=== PATIENT | male | born 1980 | race Two or more races ===

== ENCOUNTER 2021-08-30 23:11 | Emergency (ER) | payer OTHER, MEDICAID ==
[~2021-08-30] VITALS: Ht 170.2 cm; Wt 70.4 kg
--- NOTE | 2021-08-31 03:06 | RAD ---
Single view chest dated 08/31/2021 3:02 AM: COMPARISON: None Clinical Indication: Cough and shortness of breath. Findings: Single upright portable exam of the chest was performed. Heart size within normal limits. Lungs are c lear. No consolidation or pleural effusion. No pneumothorax. IMPRESSION: No acute radiographic abnormality. Electronically signed by: Emmanuel Huff MD (08/31/2021 3:03 AM) KITA
--- NOTE | 2021-08-31 03:13 | PHYS DOC ---
Past Medical History Past Surgical History: No Surgical History Smoking Status: Never Smoker Alcohol Use: None General Adult EDM: Chief Complaint: SHORTNESS OF BREATH HPI: HPI: Patient is a 41 year old male without pertinent past medical who presents with cough, sore throat, nasal congestion. Prior to arrival he was walking up the stairs and felt his heart racing, and shortness of breath. This self resolved. He experienced no chest pain or lightheadedness during this episode. Patient states that just prior to the episode he had taken some TheraFlu that may have contributed to his symptoms. At the time of evaluation he complains only of the cough, mild sore throat, nasal congestion. He has had 2 parts of a COVID vaccination, but has not been boosted. Does not know of any sick contacts. Review of Systems: Review of Systems: Constitutional: Denies fever or chills. [] Eyes: Denies change in visual acuity. [] HENT: Reports nasal congestion and mild sore throat Respiratory: Reports cough Cardiovascular: Denies chest pain or edema. [] GI: Denies abdominal pain, nausea, vomiting, bloody stools or diarrhea. [] : Denies dysuria. [] Musculoskeletal: Denies back pain or joint pain. [] Integument: Denies rash. [] Neurologic: Denies headache, focal weakness or sensory changes. [] Psychiatric: Denies depression or anxiety. [] Heart Score: C/O Chest Pain: No Allergies: Allergies: Allergies Coded Allergies Type Severity Reaction Last Updated Verified No Known Drug Allergies 08/31/21 No Physical Exam: PE: Constitutional: Well developed, well nourished, no acute distress, non-toxic appearance. [] Neck: Normal range of motion, no tenderness, supple, no stridor. [] Cardiovascular:Heart rate regular rhythm, no murmur [] Lungs & Thorax: Bilateral breath sounds clear to auscultation [] Abdomen: Bowel sounds normal, soft, no tenderness, no masses, no pulsatile masses. [] Skin: Warm, dry, no erythema, no rash. [] Back: No tenderness, no CVA tenderness. [] Extremities: No tenderness, no cyanosis, no clubbing, ROM intact, no edema. [] Neurologic: Alert and oriented X 3, normal motor function, normal sensory function, no focal deficits noted. [] Psychologic: Affect normal, judgement normal, mood normal. [] Current Patient Data: Labs: Laboratory Tests Test 08/31/21 02:35 SARS-CoV-2 Antigen (Rapid) Positive (NEGATIVE) *A Vital Signs: Vital Signs Date Time Temp Pulse Resp B/P (MAP) Pulse Ox O2 Delivery O2 Flow Rate FiO2 08/31/21 02:00 97.9 89 18 124/71 (88) 97 Room Air 97.9 EKG: EKG: Sinus rhythm. Rate 74. Normal axis. Normal intervals. No ischemic changes. Impression: Normal EKG [] Radiology/Procedures: Radiology/Procedures: [] Impression: [facility] [address] [place], [place] [id number] IMAGING REPORT Signed PATIENT: FRANCESCA JULIEN ACCOUNT: [id number] : 1980 LOCATION: ER AGE: 41 SEX: M EXAM STATUS: REG ER ORD. PHYSICIAN: ANDREW PENG MD REASON: COUGH, CONGESTION, SOB PROCEDURE: CHEST AP ONLY Single view chest dated 08/31/2021 3:02 AM: COMPARISON: None Clinical Indication: Cough and shortness of breath. Findings: Single upright portable exam of the chest was performed. Heart size within normal limits. Lungs are clear. No consolidation or pleural effusion. No pneumothorax. IMPRESSION: No acute radiographic abnormality. Electronically signed by: Emmanuel Huff MD (08/31/2021 3:03 AM) [facility] [place] DICTATED and SIGNED BY: EMMANUEL HUFF MD DATE: 08/31/21 [id number] 0 Course & Med Decision Making: Course & Med Decision Making Pertinent Labs and Imaging studies reviewed. (See chart for details) Patient 41-year-old male with 2-day history of cough, congestion, mild sore throat presented with a brief/self-limited episode of palpitations and mild s hortness of breath. On arrival he is afebrile, with normal heart rate, blood pressure, and is satting 97+ percent on room air. He has a normal work of breathing and normal auscultatory exam. PERC negative. Does not require evaluation for PE. Chest x-ray clear. EKG normal without evidence of arrhythmia, blocks, or QTC prolongation. Rapid COVID is positive which aligns well with his symptom complex. Given his stable vital signs and normal work of breathing feel he is appropriate for discharge with outpatient follow-up. He was given expectant management as well as isolation and return precautions Benny Disclaimer: Benny Disclaimer: This electronic medical record was generated, in whole or in part, using a voice recognition dictation system. Departure Departure Impression: Primary Impression: COVID-19 Disposition: HOME / SELF CARE / HOMELESS Condition: STABLE Referrals: NO PCP (PCP) Additional Instructions: You have Covid. Isolation: -You will need to isolate for a minimum of 5 days from symptom onset. 09/04 would be the earliest that you could end your isolation. -At 5 days please take a rapid COVID test, if positive continue to isolate for a full 10 days duration -At the 10-day satinder (or 5-day satinder with a negative COVID test), you must also have at least 3 days of no fever/chills, and improving symptoms before you end your isolation. -If you are continuing to be symptomatic or having high fevers you need to continue your isolation until you meet the above requirements. Monitoring: -Please buy a home pulse oximeter. These can be purchased [id number] most pharmacies, or on [employer]. -Check your oxygen levels once a day. If they are persistently below 90% please return to the emergency department. -If you develop chest pain or worsening shortness of breath please return to the emergency department. For fever/body aches tylenol and ibuprofen are best used on a schedule. Please alternate between the two. -Tylenol 1000 mg every 6 hours (do not exceed 4000 mg in one day) -Ibuprofen 400-600 mg every 6 hours. Take with food. Do not take for more than 1 week. If you do not have a PCP, please call the number for the [facility] at [phone]. ANDREW PENG MD Aug 31, 2021 03:13
[2021-08-31 03:55] VITALS: BP 118/72
--- NOTE | 2021-08-31 09:02 | EKG ---
[facility] [address] [place] [address] Test Date: 2021-08-31 Test Time: 02:33:39 Pat Name: FRANCESCA JULIEN Department: Room: Gender: M Surgical [employer] Hand Frame: : 1980 Requested By: ANDREW PENG Order Number: [id number] Reading MD: Demario Gonzalez MD Measurements Intervals [place] Rate: 74 P: 49 ID: [id number] QRS: 38 QRSD: 90 T: 46 QT: 356 QTc: 400 Interpretive Statements SINUS RHYTHM Electronically Signed On 09-02-2021 8:49:05 [facility] by Demario Gonzalez MD
== END 2021-08-31 04:00 | disposition home or self-care (01) ==
LOC: ER 23:11
DX: U07.1 COVID-19 (principal)
CPT/HCPCS: 71045; 87426; 93005; 99285